=== PATIENT | male | born 1975 ===

== ENCOUNTER 2022-05-28 14:34 | Emergency (ER) | payer SELFPAY ==
[~2022-05-28] VITALS: Ht 185.4 cm; Wt 90.9 kg
[2022-05-28 14:43] VITALS: BP 172/112
[2022-05-28 16:35] VITALS: PULSE 110
== END 2022-05-28 16:35 | disposition home or self-care (01) ==
LOC: COL.ER 14:34
DX: S60.221A Contusion of right hand, initial encounter (principal); M79.642 Pain in left hand; F17.210 Nicotine dependence, cigarettes, uncomplicated; Z28.310 Unvaccinated for COVID-19; W10.8XXS Fall (on) (from) other stairs and steps, sequela; Y92.029 Unspecified place in mobile home as the place of occurrence of the external cause

== ENCOUNTER 2024-01-11 16:34 | Inpatient (IN) | payer OTHER ==
[~2024-01-11] VITALS: Ht 185.4 cm; Wt 97.9 kg
[2024-01-11] MEDS ORDERED: NS 1,000 ML IV ONE (17:15)
[2024-01-11 17:28] LABS: BASO % 0.6 % (0.0-2.0); EOS # 0.2 K/mm3 (0.0-0.7); EOS % 2.4 % (0.0-4.0); GRAN # 3.7 K/mm3 (1.4-6.5); GRAN % 59.4 % (42.2-75.2); HEMATOCRIT 41.8 % (42.0-52.0); HEMOGLOBIN 14.3 g/dl (13.5-18.0); LYMPH # 1.9 K/mm3 (1.2-3.4); LYMPH % 31.5 % (20.0-51.0); MEAN CELL VOLUME 86 fl (80.0-100.0); MEAN CORPUSCULAR HEMOGLOBIN 29 pg (27-31); MEAN CORPUSCULAR HGB CONC 34 g/dl (33.0-37.0); MEAN PLATELET VOLUME 9.2 fl (7.4-10.4); MONO # 0.4 K/mm3 (0.1-0.6); MONO % 5.8 % (1.7-9.3); PLATELET COUNT 365 K/mm3 (130-400); RED BLOOD COUNT 4.87 M/mm3 (4.20-5.60); REDCELL DISTRIBUTION WIDTH-CV 12.7 % (11.5-14.5)
[2024-01-11] MEDS ORDERED: Insulin Regular Human (NovoLIN R/HumuLIN R) IV ONE (17:30)
[2024-01-11 17:53] LABS: ALBUMIN 3.4 gm/dL (3.5-5.0); BILIRUBIN,TOTAL 0.3 mg/dL (0.2-1.2); C-REACTIVE PROTEIN 0.58 mg/dL (0.00-0.50); CALCIUM 9.2 mg/dL (8.4-10.2); CREATININE, serum 1.29 mg/dL (0.72-1.25); POTASSIUM 3.8 mmol/L (3.5-4.5); TOTAL PROTEIN 7.4 gm/dL (6.2-8.1)
[2024-01-11] MEDS ORDERED: Vancomycin 2 GM,Special Dose/Pharmacy Prepared 2 GM in NS 500 ML IV SCH (18:15)
[2024-01-11] MEDS ORDERED: NS 1,000 ML IV SCH (18:15)
[2024-01-11] MEDS ORDERED: Tetanus,Diphther Toxoid Adult 0.5 ML SYRINGE IM ONE (18:15)
[2024-01-11] MEDS ORDERED: Acetaminophen 325 MG TAB PO PRN (18:15)
[2024-01-11] MEDS ORDERED: Vancomycin 1.5 GM,Special Dose/Pharmacy Prepared 1.5 GM in NS 250 ML IV SCH (18:30)
[2024-01-11] MEDS ORDERED: PRINIVIL10 MG PO (18:50)
[2024-01-11] MEDS ORDERED: NEURONTIN300 MG/CAP PO (18:52)
[2024-01-11 18:53] LABS: MAGNESIUM 1.8 mg/dL (1.6-2.6)
[2024-01-11] MEDS ORDERED: NOVOLIN 70/30 710 ML SQ (18:53)
[2024-01-11] MEDS ORDERED: Lisinopril 10 MG TAB PO SCH (18:57)
[2024-01-11] MEDS ORDERED: Nicotine 21 MG DAILY PATCH TD SCH (19:00)
[2024-01-11 19:13] LABS: THYROID STIMULATING HORMONE 1.291 uIU/mL (0.350-4.940)
[2024-01-11] MEDS ORDERED: HYDROmorphone 0.5 MG/0.5 ML SYRINGE IV PRN (19:30)
[2024-01-11] MEDS ORDERED: Insulin Lispro (HumaLOG) SQ SCH (20:00)
[2024-01-11 20:31] VITALS: BP 145/88; PULSE 88; TEMP 98
[2024-01-11 20:40] VITALS: BP_SYST 145
--- NOTE | 2024-01-11 20:45 | NUR ---
Admitted to medical floor from ER with foot wounds/cellulitis, VSS,Alert/Oriented x4, states does have some pain to feet /10, IV fluids of NS at 150cc/hr, Tele on- SR, edema to lower legs, accu checks every 4 hrs, 335 at this time,covered per sliding scale, getting IV antibiotics Zosyn and vancomycins as ordered, Has wounds to feet: Right foot- Great toe and next toe with open areas on top of toes, dry/crusty black areas, open area on side of right lower leg,quarter size with yellow center and black ring, cluster of dry scabs by ankle Left foot- Large fluid filled blister top of foot,lemon sized, left great toe jean-baptiste/black,nail black,, other toes tops are red /black tips.
[2024-01-12] VITALS (11 sets, daily range): BP systolic 130–162; BP diastolic 76–100; PULSE 79–86; TEMP 97.5–98.5
[2024-01-12 01:23] LABS: COLLECTION METHOD CLEAN CATCH
[2024-01-12 01:53] LABS: PH 5.5 (5.0-8.5); URINE APPEARANCE CLEAR (CLEAR/HAZY); URINE BLOOD NEGATIVE (NEGATIVE); URINE COLOR YELLOW (YELLOW); URINE GLUCOSE 3+ (NEGATIVE); URINE KETONE TRACE (NEGATIVE); URINE NITRATE NEGATIVE (NEGATIVE); URINE PROTEIN(semi-quant) NEGATIVE (NEGATIVE)
[2024-01-12 02:04] LABS: TRICYCLIC ANTIDEPRESS URINE NEGATIVE (NEGATIVE)
--- NOTE | 2024-01-12 05:32 | NUR ---
48 yo male admitted for further care and mangement of likely a diabetic foot ulcer with cellulitis. ht 185.4 cm wt 102.3 kg SCr 1.29 with estimated CrCl >60 ml/min half life 13.5 hours Plan: Patient received an initial loading dose of vancomycin 1500 mg x1; will give a supplemental loading dose of vancomycin 500 mg for a total loading dose of 2000 mg (19.6 mg/kg); followed by a maintenance regimen of vancomycin 1250 mg q12h to target a goal trough of 15-20 mcg/ml. Will follow patient's renal function, micro data, and vancomycin levels as indicated to assess for any necessary changes to regimen. Thank you for this dosing consult.
--- NOTE | 2024-01-12 06:15 | NUR ---
Did sleep good last night- restless in the bed at times, did offer to give pain meds but pt declined-- Up to bathroom with one assist, voided and stool. Big fluid filled blster to top of left foot did burst during the night-- bed linens changed- 4x4 applied to top of foot-
[2024-01-12 06:55] LABS: BASO # 0.1 K/mm3 (0.0-0.2); BASO % 0.8 % (0.0-2.0); EOS # 0.2 K/mm3 (0.0-0.7); EOS % 2.5 % (0.0-4.0); GRAN # 3.3 K/mm3 (1.4-6.5); LYMPH # 2.1 K/mm3 (1.2-3.4); LYMPH % 34.8 % (20.0-51.0); MEAN CORPUSCULAR HGB CONC 34 g/dl (33.0-37.0); MONO # 0.4 K/mm3 (0.1-0.6); MONO % 6.7 % (1.7-9.3); PLATELET COUNT 323 K/mm3 (130-400); RED BLOOD COUNT 4.18 M/mm3 (4.20-5.60); REDCELL DISTRIBUTION WIDTH-CV 12.8 % (11.5-14.5)
[2024-01-12 07:06] LABS: HEMATOCRIT 35.2 % (42.0-52.0); MEAN CORPUSCULAR HEMOGLOBIN 29 pg (27-31)
[2024-01-12 07:07] LABS: CALCIUM 7.4 mg/dL (8.4-10.2); CREATININE, serum 0.85 mg/dL (0.72-1.25); MEAN CELL VOLUME 84 fl (80.0-100.0); POTASSIUM 3.6 mmol/L (3.5-4.5)
[2024-01-12] MEDS ORDERED: Vancomycin 1.25 GM,Special Dose/Pharmacy Prepared 1.25 GM in NS 250 ML IV SCH (07:30)
--- NOTE | 2024-01-12 08:00 | NUR ---
Patient laying in bed sleeping, easily awakened with verbal command. A&Ox4. VSS. IV CDI, fluids infusing. Denies pain and discomfort. Call light within reach. Bed alarm on
[2024-01-12] MEDS ORDERED: Gabapentin 300 MG CAP PO SCH (09:00)
[2024-01-12] MEDS ORDERED: Influenza Virus Vaccine, Quad '23-24 (6 MOS+) 0.5 ML SYRINGE IM SCH (09:00)
--- NOTE | 2024-01-12 12:04 | NUR ---
SW met patient to complete intake and discuss discharge planning. Patient reports that he lives in [place] alone in his home, patient informed SW that he is independent with ADLs and currently does not utilize any DMEs. Patient shared that his NOK is friend (Martín Simon [phone]). Patient reports that he currently uses [facility] in [place] and both their pharmacy and [facility]. Patient was provided information on DPOA forms avalilable-declined completing at this time. Patient is anticipating to discharge back home to his residence, pending any further medical recommendations.
--- NOTE | 2024-01-12 14:37 | NUR ---
SW received director social welfare consult form on patient requesting: food assistance info. SW revisited with patient and provided him information on local food pantry and resource guide. SW inquired with patient if he needed further information on those resources or assessing them, patient declined. SW encouraged patient to reach out if he needed further information and/or support with resources.
--- NOTE | 2024-01-12 20:30 | NUR ---
UPON SHIFT ASSESSMENT, KORY WAS AWAKE IN BED AND AXOX 4 WITH GIRLFRIEND BEDSIDE. BLLE WOUNDS CDI AND DRESSED IN NON ADHERANT WITH KERLIX AND DE. RT MCKEON ULCER OPEN TO AIR WITH NO DRAINAGE NOTED-EXUDANT DRY. NS RUNNING AT 150ML/HR. KORY C/O 8/10 BLLE PAIN, TYLENOL AND DILAUDID ADMINISTERED. VS WNL-BLOOD PRESSURE SLIGHTLY ELEVATED D/T TO PAIN. WILL REASSESS AFTER PAIN MED. SEIZURE PRECAUTIONS FOR HIGH NA+ LEVEL IN PLACE. CALL LIGHT WITHIN REACH.
[2024-01-12] MEDS ORDERED: Insulin Glargine-ygfn (Lantus) SQ SCH (21:00)
[2024-01-13] VITALS (11 sets, daily range): BP systolic 147–171; BP diastolic 60–104; PULSE 78–85; TEMP 98–98.5
--- NOTE | 2024-01-13 05:30 | NUR ---
BP RECHECK-152/90 WNL. PREVIOUS VITAL SIGNS MONITOR (0400) WAS SYSTOLIC 170'S.
[2024-01-13 07:58] LABS: BASO % 0.4 % (0.0-2.0); EOS # 0.2 K/mm3 (0.0-0.7); EOS % 3.5 % (0.0-4.0); GRAN # 3.1 K/mm3 (1.4-6.5); GRAN % 56.2 % (42.2-75.2); HEMOGLOBIN 11.9 g/dl (13.5-18.0); LYMPH # 1.9 K/mm3 (1.2-3.4); LYMPH % 34.2 % (20.0-51.0); MEAN CELL VOLUME 84 fl (80.0-100.0); MEAN CORPUSCULAR HEMOGLOBIN 29 pg (27-31); MEAN CORPUSCULAR HGB CONC 35 g/dl (33.0-37.0); MEAN PLATELET VOLUME 9.3 fl (7.4-10.4); MONO # 0.3 K/mm3 (0.1-0.6); MONO % 5.3 % (1.7-9.3); PLATELET COUNT 310 K/mm3 (130-400); RED BLOOD COUNT 4.09 M/mm3 (4.20-5.60); REDCELL DISTRIBUTION WIDTH-CV 12.7 % (11.5-14.5)
[2024-01-13 07:59] LABS: HEMATOCRIT 34.5 % (42.0-52.0)
[2024-01-13 08:31] LABS: CALCIUM 8.2 mg/dL (8.4-10.2); CREATININE, serum 0.84 mg/dL (0.72-1.25); POTASSIUM 3.3 mmol/L (3.5-4.5)
--- NOTE | 2024-01-13 08:33 | NUR ---
VANC TROUGH REPORTED TO PHARMACIST AT THIS TIME. INSTRUCTED TO GIVE SCHEDULED DOSE OF VANCOMYCIN ORDERED NOW.
--- NOTE | 2024-01-13 09:45 | NUR ---
PATIENT LAYING IN BED, WOUND CARE SEEING PATIENT WHEN ENTERING ROOM. MORNING MEDICATIONS ADMINISTERED. SHIFT ASSESSMENT COMPLETED. IVF INFUSING. PATIENT REPORTS SOME PAIN DURING WOUND CARE DRESSING APPLICATION. PATIENT DENIES ANY OTHER CONERNS AT THIS TIME. WOUND CARE INFORMS THIS RN THAT DRESSING CHANGES WILL BE COMPLETED BID. CALL LIGHT WITHIN REACH. WILL CONTINUE TO MONITOR.
[2024-01-13] MEDS ORDERED: Lisinopril 10 MG TAB PO ONE (10:30)
[2024-01-13] MEDS ORDERED: Potassium Bicarbonate/Citrate 20 MEQ Effervescent TAB PO SCH (10:30)
[2024-01-13] MEDS ORDERED: Glucagon 1 MG VIAL IM PRN (10:30)
[2024-01-13] MEDS ORDERED: Dextrose (Glucose) 15 GM (4 x 3.75 GM) Chewable TABLET PACK PO PRN (10:30)
[2024-01-13] MEDS ORDERED: *Potassium Replacement Protocol MC SCH (10:30)
[2024-01-13] MEDS ORDERED: Dextrose 50% Water 25 GM/50 ML SYRINGE IV PRN (10:30)
--- NOTE | 2024-01-13 15:51 | NUR ---
Social work was notified patient needs home health for wound care. Social work student contacted [facility] to determine if his PCP would follow for home health for wound care. is going to follow for home health. Social work student called home health agencies in patient's area to see if they would be able to accept with patient's current drug use. The following agencies are unable to accept: [facility], [facility], [facility], [facility], and [facility]. A referral was sent to the following agencies: [facility] and [facility]. Social work student left voicemail to the following agency: [facility] Discharge plan: Home with Home Health
--- NOTE | 2024-01-13 16:18 | NUR ---
offal worker attended interdisciplinary clincial rounding and patient is wanting home health services as he feels he will have difficulty getting to and from appointments for wound care. RUBÉN provided Medicare.gov list of options to patient. RUB[facility]N Student contacted PCP and Home health list, See note from Hyacinth Guerra. Discharge plan: Home with home health
[2024-01-13] MEDS ORDERED: Vancomycin 1.25 GM,Special Dose/Pharmacy Prepared 1.25 GM in NS 250 ML IV SCH (17:00)
[2024-01-13] MEDS ORDERED: Insulin NPH/REG (NovoLIN 70/30) SQ SCH (17:00)
--- NOTE | 2024-01-13 19:15 | NUR ---
PATIENT RESTING IN BED WITH TV ON WITH NO FAMILY PRESENT WITH NO ACUTE DISTRESS NOTED. PATIENT ON ROOM AIR. ZOSYN INFUSING INTO RIGHT AC WITH NO COMPLICATIONS NOTED. TELEMETRY INTACT. PATIENT DENIES ANY NEEDS AT THIS TIME. PATIENT CARE ASSUMED FROM [facility]. BED IN LOW POSITION WITH WHEELS LOCKED WITH RAILS UP X3 AND CALL LIGHT WITHIN REACH.
--- NOTE | 2024-01-13 21:20 | NUR ---
PATIENT UP AT DOOR LOOKING OUT IN HALLWAY. PRIMARY NURSE WALKED UP TO PATIENT AND DIRECTED PATIENT BACK TO ROOM. PATIENT YELLING. PATIENT CONCERENS ADDRESSED. ZOSYN STOPPED DUE TO RIGHT AC IV LEAKING. PATIENT BACK IN BED. PRIMARY NURSE STARTED NEW IV INTO LEFT HAND WITH 2 STICKS. PATIENT TOLERATED WELL. ASSESSMENT AND MEDICATION ADMINISTRATION COMPLETED AT THIS TIME. PATIENT TOLERATED WELL. PATIENT C/O LEG AND FEET PAIN. IV MEDICATION GIVEN PER MD ORDER. PATIENT REQUESTED NIGHT TIME SNACK AND WAS GIVEN. ALL NEEDS MET. BED IN LOW POSITION WITH WHEELS LOCKED WITH RAILS UP X3 AND CALL LIGHT WITHIN REACH.
[2024-01-14] VITALS (8 sets, daily range): BP systolic 146–196; BP diastolic 89–117; PULSE 77–95; TEMP 97.6–98.5
--- NOTE | 2024-01-14 00:27 | NUR ---
PATIENT RESTING IN BED WITH TV ON WITH NO ACUTE DISTRESS NOTED. PATIENT ON ROOM AIR. VANCOMYCIN HUNG AT THIS TIME. PATIENT TOLERATED WELL. MEDICATION ADMINISTRATION COMPLETED. PATIENT DENIES ANY NEEDS. BED IN LOW POSITION WITH WHEELS LOCKED WITH RAILSUP X3 AND CALL LIGHT WITHIN REACH.
--- NOTE | 2024-01-14 06:50 | NUR ---
PT SLEEPING IN BED. PT IS ON RA. PT IS SR ON TELE. PT IS ORIENTED AND CALL LIGHT REACHABLE.
[2024-01-14 07:21] LABS: BASO # 0.1 K/mm3 (0.0-0.2); BASO % 0.8 % (0.0-2.0); EOS # 0.2 K/mm3 (0.0-0.7); EOS % 3.2 % (0.0-4.0); GRAN # 3.8 K/mm3 (1.4-6.5); GRAN % 58.4 % (42.2-75.2); HEMATOCRIT 37.1 % (42.0-52.0); HEMOGLOBIN 12.7 g/dl (13.5-18.0); LYMPH # 2.1 K/mm3 (1.2-3.4); LYMPH % 31.9 % (20.0-51.0); MEAN CELL VOLUME 85 fl (80.0-100.0); MEAN CORPUSCULAR HEMOGLOBIN 29 pg (27-31); MEAN CORPUSCULAR HGB CONC 34 g/dl (33.0-37.0); MEAN PLATELET VOLUME 9.3 fl (7.4-10.4); MONO # 0.4 K/mm3 (0.1-0.6); MONO % 5.4 % (1.7-9.3); PLATELET COUNT 336 K/mm3 (130-400); RED BLOOD COUNT 4.39 M/mm3 (4.20-5.60); REDCELL DISTRIBUTION WIDTH-CV 12.5 % (11.5-14.5)
[2024-01-14 07:32] LABS: CALCIUM 8.4 mg/dL (8.4-10.2); CREATININE, serum 1.06 mg/dL (0.72-1.25); POTASSIUM 3.6 mmol/L (3.5-4.5)
[2024-01-14] MEDS ORDERED: AMOXICILLIN 8751 TAB PO (08:40)
[2024-01-14] MEDS ORDERED: DOXYCYCLINE HY100 MG PO (08:40)
[2024-01-14] MEDS ORDERED: ZESTRIL 20MG TA20 MG PO (08:41)
[2024-01-14] MEDS ORDERED: Doxycycline Monohydrate 100 MG CAP PO ONE (08:45)
--- NOTE | 2024-01-14 08:45 | NUR ---
pack worker supervisor was notified that [facility] cannot take [facility]. SW was notified by [facility] that they were having difficulty running patient's insurance. SW attended interdisciplinary clinical rounding with Dr. Caputo. Patient is able to discharge home today. Dr. Caputo mentioned outpatient wound care. SW clarified with patient if he would be able to get to the outpatient wound appointments. Patient stated he would be able to and it is close to his home. Patient informed Dr. Caputo that he has insulin available at home but would like to start the regime he has been getting in the hospital as he feels he has been feeling better at the hospital with this dosing than he had previously. Prescriptions will be sent to [facility], patient's pharmacy. Discharge plan: Home with outpatient wound care
[2024-01-14] MEDS ORDERED: Lisinopril 20 MG TAB PO SCH (09:00)
[2024-01-14] MEDS ORDERED: Amoxicillin/Clavulanate K+ 875/125 MG TAB PO SCH (09:00)
--- NOTE | 2024-01-14 10:38 | NUR ---
SAW PATIENT HE WAS GETTING READY FOR DISCHARGE. PATIENT STATES I KNOW ABOUT DIABETES, WYATT HAD IT FOR A LONG TIME. HE STATES HE EATS JUNK FOOD BECAUSE ITS SOFT AND EASIER TO CHEW AND HE WANTS TO GET HIS TEETH FIXED SO HE CAN EAT MORE VEGIS. HE ALSO STATED THAT HE LIVES IN AND IS LOW INCOME SO HE PROBABLY WOULDNT BE ABLE TO COME SEE US OUTPATIENT. I WENT AHEAD AND GAVE PATIENT OUR FOLDER AND MY CARD ANYWAY. PATIENT STATED HE IS ON INSULIN AND KNOWS HOW TO ADMINISTER IT TO HIMSELF PROPERLY. HE DIDNT HAVE ANY QUESTIONS. LEXX, MSN, RN
--- NOTE | 2024-01-14 10:40 | NUR ---
PT BEING DISCHARGED. PT REFUSED FULL DRESSING CHANGE, ONLY WANTED NEW DE WRAPS. EDUCATED PT ON THE IMPORTANCE OF DOING DRESSING CHANGED BID ORDERED BY WOUND CARE, BUT PT REFUSED. PT GIVEN WOUND CARE INSTRUCTIONS AND SUPPLIES. DISCHARGE INSTRUCTIONS DISCUSSED. DISCUSSED IMPORTANCE OF ATTENDING FOLLOW UP APPOINTMENTS. FOLLOWING [facility]. JUNIOR NETWORK ENGINEER CAME TO ROOM, PT NOT REALLY RECEPTIVE TO EDUCATION. INSTRUCTED ON OUTPT DIABETIC EDUCATION. ALL QUESTIONS ANSWERED. PT WHEELED OUT FOR DISCHARGE BY KIKI TURNER
== END 2024-01-14 10:45 | disposition home or self-care (01) | DRG 638 ==
LOC: COL.ER 16:34 → MEDICAL 19:23
PROVIDERS: Emergency Medicine; Nurse Practitioner Family; ADMIT Hospitalist
DX: E11.621 Type 2 diabetes mellitus with foot ulcer (principal); L03.90 Cellulitis, unspecified; Z79.4 Long term (current) use of insulin; E11.40 Type 2 diabetes mellitus with diabetic neuropathy, unspecified; I45.81 Long QT syndrome; I10 Essential (primary) hypertension; N17.9 Acute kidney failure, unspecified; E87.6 Hypokalemia; F19.90 Other psychoactive substance use, unspecified, uncomplicated
CPT/HCPCS: J1170; J1650; J1815; J2543; J3370; J3475; J7030; J7050; Q3014

== ENCOUNTER 2024-02-17 15:01 | Emergency (ER) | payer OTHER ==
[~2024-02-17] VITALS: Ht 185.4 cm; Wt 99.5 kg
[~2024-02-17 15:01] MED LIST: AMOXICILLIN 8751 TAB PO; DOXYCYCLINE HY100 MG PO; NEURONTIN300 MG/CAP PO; NOVOLIN 70/30 710 ML SQ; PRINIVIL10 MG PO; ZESTRIL 20MG TA20 MG PO
[2024-02-17 15:09] VITALS: TEMP 97.5
[2024-02-17] MEDS ORDERED: NS 1,000 ML IV ONE (15:45)
[2024-02-17 16:22] LABS: BASO % 0.8 % (0.0-2.0); EOS # 0.1 K/mm3 (0.0-0.7); EOS % 2.6 % (0.0-4.0); GRAN # 2.5 K/mm3 (1.4-6.5); GRAN % 49.8 % (42.2-75.2); HEMATOCRIT 37.8 % (42.0-52.0); LYMPH % 40.3 % (20.0-51.0); MEAN CELL VOLUME 84 fl (80.0-100.0); MEAN CORPUSCULAR HEMOGLOBIN 29 pg (27-31); MEAN CORPUSCULAR HGB CONC 34 g/dl (33.0-37.0); MEAN PLATELET VOLUME 8.8 fl (7.4-10.4); MONO # 0.3 K/mm3 (0.1-0.6); MONO % 6.3 % (1.7-9.3); PLATELET COUNT 315 K/mm3 (130-400); REDCELL DISTRIBUTION WIDTH-CV 13.1 % (11.5-14.5)
[2024-02-17 16:31] LABS: ALBUMIN 3.5 g/dL (3.5-5.0); BILIRUBIN,TOTAL 0.4 mg/dL (0.2-1.2); C-REACTIVE PROTEIN 0.19 mg/dL (0.00-0.50); CALCIUM 9.2 mg/dL (8.4-10.2); CREATININE, serum 0.93 mg/dL (0.72-1.25); POTASSIUM 3.6 mEq/L (3.5-4.5); TOTAL PROTEIN 7.2 g/dl (6.2-8.1)
[2024-02-17] MEDS ORDERED: DOXYCYCLINE 10100 MG PO (17:12)
[2024-02-17 17:38] VITALS: BP 180/114; PULSE 68
[2024-02-17] MEDS ORDERED: amLODIPine 5 MG TAB PO ONE (17:45)
== END 2024-02-17 17:50 | disposition home or self-care (01) ==
LOC: COL.ER 15:01
PROVIDERS: Family Medicine
DX: L02.612 Cutaneous abscess of left foot (principal); L03.032 Cellulitis of left toe
CPT/HCPCS: J7030